=== PATIENT | female | born 1965 | race Caucasian/White ===

== ENCOUNTER → 2017-08-11 | Outpatient (REF) | payer BC | LOC: M LAB REF 17:48 | PROVIDERS: ATTEND Family Medicine | DX: Z01.419 Encounter for gynecological examination (general) (routine) without abnormal findings (principal); Z11.51 Encounter for screening for human papillomavirus (HPV); R87.615 Unsatisfactory cytologic smear of cervix ==

== ENCOUNTER → 2018-01-20 | Outpatient (REF) | payer BC ==
[2018-01-20 12:51] LABS: INFLUENZA A AMPLIFICATION NEGATIVE (NEGATIVE); INFLUENZA B AMPLIFICATION POSITIVE (NEGATIVE)
== END ==
LOC: M LAB REF 11:57
DX: J11.1 Influenza due to unidentified influenza virus with other respiratory manifestations (principal); J02.0 Streptococcal pharyngitis

== ENCOUNTER → 2020-10-06 | Outpatient (REF) | payer BC | LOC: M LAB REF 15:18 | PROVIDERS: ATTEND Physician Assistant Medical | DX: Z01.419 Encounter for gynecological examination (general) (routine) without abnormal findings (principal) ==

== ENCOUNTER → 2021-11-23 | Outpatient (CLI) | payer BC ==
[2021-11-23 15:46] LABS: ALBUMIN 4.1 GM/DL (3.2-5.2); ALT/SGPT 39 U/L (12-78); BILIRUBIN,TOTAL 0.3 MG/DL (0.2-1.0); BLOOD UREA NITROGEN 17 MG/DL (7-18); CALCIUM LEVEL 9.3 MG/DL (8.5-10.1); CARBON DIOXIDE LEVEL 31 MEQ/L (21-32); CHLORIDE LEVEL 103 MEQ/L (98-107); CHOLESTEROL LEVEL 272 MG/DL (<200); CHOLESTEROL RISK RATIO 2.566 (<5); CREATININE FOR GFR 0.64 MG/DL (0.55-1.30); GLOMERULAR FILTRATION RATE > 60.0 (>51); GLUCOSE, FASTING 85 MG/DL (70-100); HDL CHOLESTEROL 106 MG/DL (>40); LDL CHOLESTEROL 151 MG/DL (<100); NON-HDL-C 166 MG/DL; RHEUMATOID FACTOR QUANT < 10.0 IU/ML (<15.0); SODIUM LEVEL 139 MEQ/L (136-145); TOTAL PROTEIN 6.6 GM/DL (6.4-8.2); TRIGLYCERIDES LEVEL 74 MG/DL (<150); URIC ACID 3.2 MG/DL (2.6-6.0)
--- NOTE | 2021-11-23 19:18 | REP ---
INDICATION: ARTHROPATHY, UNSPECIFIED COMPARISON: None. TECHNIQUE: AP, lateral, bilateral oblique views right and left hand. FINDINGS: The osseous structures and joint spaces from the metacarpal bones through the phalanges are bilaterally symmetric, intact and normal. No significant osteoarthritic or inflammatory arthritic changes are appreciated. There is no evidence for acute or obvious healed injury. Evaluation of the wrist demonstrates bilateral arthritic changes at the 1st carpometacarpal joints including periarticular sclerosis, chronic subluxation and subtle spurring to the trapezium bilaterally. IMPRESSION: 1. Symmetric arthritic changes at the bilateral 1st carpometacarpal joints. 2. Remainder of the examination is symmetric and normal. <Electronically signed by Wenceslao Ruano > 11/23/21 [id number]
== END ==
LOC: M PLAIMG 12:11
PROVIDERS: ATTEND Nurse Practitioner Family
DX: M12.9 Arthropathy, unspecified (principal)